=== PATIENT | male | born 1970 | race Two or more races ===

== ENCOUNTER 2023-01-04 11:16 | Inpatient (IN) | payer OTHER ==
[~2023-01-04] VITALS: Ht 170.2 cm; Wt 85.9 kg
[2023-01-04] MEDS ORDERED: ASPirin 325 MG TAB PO ONE (11:30)
[2023-01-04 11:44] LABS: Basophils # (auto) 0 10 ^3/uL (0-0.2); Basophils % (auto) 0.7 % (0.0-2.0); Eosinophils # (auto) 0.1 10 ^3/uL (0-0.8); Hematocrit 46.1 % (41.0-53.0); Hemoglobin 15.5 g/dL (13.5-17.5); Lymphocytes # (auto) 2.3 10 ^3/uL (0.4-5.4); Lymphocytes % (auto) 34.2 % (10.0-50.0); Mean Corpuscular Hemoglobin 28.7 pg (28.0-32.0); Mean Corpuscular Hgb Conc. 33.7 g/dL (32.0-36.0); Mean Corpuscular Volume 85.3 fL (80.0-100.0); Monocytes # (auto) 0.5 10 ^3/uL (0-1.3); Monocytes % (auto) 7.5 % (0.0-12.0); Neutrophils # (auto) 3.7 10 ^3/uL (1.6-8.6); Neutrophils % (auto) 56.6 % (37.0-80.0); Nucleated Red Blood Cells % 0.2 %; Red Blood Cells 5.41 10^6/uL (4.5-5.90); Red Cell Distribution Width 13.4 % (11.8-14.3); White Blood Cell 6.6 10^3/uL (4.4-10.8)
[2023-01-04 12:07] LABS: Albumin 4.1 g/dL (3.4-5.0); Calcium 8.5 mg/dL (8.5-10.1); Potassium 4.1 mmol/L (3.5-5.1)
[2023-01-04 12:10] LABS: Bilirubin, Total 0.8 mg/dL (0.2-1.0); Total Protein 7.8 g/dL (6.4-8.2)
[2023-01-04] MEDS: NITROGLYCERIN 0.4 MG SL TAB SL ONE ×2 (12:13→14:55)
[2023-01-04 12:47] LABS: BUN/Creatinine Ratio 17.7 (10.0-20.0)
[2023-01-04] MEDS ORDERED: DOCUSATE SOD 100 MG CAP PO PRN (17:30)
[2023-01-04] MEDS ORDERED: NITROGLYCERIN 0.4 MG SL TAB SL PRN (17:30)
[2023-01-04] MEDS ORDERED: ACETAMINOPHEN 325 MG TAB PO PRN (17:30)
[2023-01-04] MEDS ORDERED: MORPHINE SULFATE INJ 2 MG/ml SYRG IV PRN (17:30)
[2023-01-04] MEDS ORDERED: HYDROcodone-ACET 5/325MG TAB PO PRN (17:30)
[2023-01-04] MEDS ORDERED: FLUT1AER12 INH (17:31)
[2023-01-04] MEDS: [UNRECOGNIZED DRUG - OTHER] MT SCH (22:00)
[2023-01-04] MEDS: SODIUM CHLOR 0.9% PF (SALINE LOCK) 10ML VIAL/SYR IV SCH (22:00)
[2023-01-04] MEDS: FLUTICASONE SALMETEROL MT SCH (22:00)
[2023-01-05 06:25] LABS: Basophils # (auto) 0 10 ^3/uL (0-0.2); Basophils % (auto) 0.6 % (0.0-2.0); Eosinophils # (auto) 0.1 10 ^3/uL (0-0.8); Eosinophils % (auto) 1.7 % (0.0-7.0); Hematocrit 45.7 % (41.0-53.0); Hemoglobin 15.7 g/dL (13.5-17.5); Lymphocytes # (auto) 1.8 10 ^3/uL (0.4-5.4); Lymphocytes % (auto) 24.9 % (10.0-50.0); Mean Corpuscular Hemoglobin 29.2 pg (28.0-32.0); Mean Corpuscular Hgb Conc. 34.3 g/dL (32.0-36.0); Monocytes # (auto) 0.7 10 ^3/uL (0-1.3); Monocytes % (auto) 9.7 % (0.0-12.0); Neutrophils # (auto) 4.6 10 ^3/uL (1.6-8.6); Neutrophils % (auto) 63.1 % (37.0-80.0); Nucleated Red Blood Cells % 0.1 %; Red Blood Cells 5.38 10^6/uL (4.5-5.90); Red Cell Distribution Width 13.4 % (11.8-14.3); White Blood Cell 7.3 10^3/uL (4.4-10.8)
[2023-01-05] MEDS: SODIUM CHLOR 0.9% PF (SALINE LOCK) 10ML VIAL/SYR IV SCH ×2 (06:27→14:53)
[2023-01-05 06:36] LABS: Potassium 3.8 mmol/L (3.5-5.1)
[2023-01-05 06:44] LABS: Albumin 4.1 g/dL (3.4-5.0); Bilirubin, Total 0.9 mg/dL (0.2-1.0); Total Protein 8.1 g/dL (6.4-8.2)
[2023-01-05] MEDS ORDERED: AML5T PO (09:49)
[2023-01-05] MEDS ORDERED: BENA-36 PO (09:50)
[2023-01-05] MEDS ORDERED: ASPirin 81 mg TAB PO SCH (10:00)
[2023-01-05] MEDS ORDERED: IPRATROPIUM BROM 0.5 MG/2.5ML INH SOL NEB PRN (12:00)
[2023-01-05] MEDS ORDERED: ALBUTEROL SULF 2.5 MG/0.5ML(0.5%) NEB SOLN NEB PRN (12:00)
[2023-01-05] MEDS: [UNRECOGNIZED DRUG - OTHER] MT SCH (15:06)
[2023-01-05] MEDS: FLUTICASONE SALMETEROL MT SCH (15:06)
[2023-01-05 15:53] VITALS: BP 160/97
[2023-01-05 22:50] VITALS: BP 127/77
[2023-01-06] MEDS ORDERED: amLODIPine BESYLATE 5 MG TAB PO SCH (10:00)
[2023-01-06] MEDS ORDERED: BENAZEPRIL HCL 10 MG TAB PO SCH (10:00)
== END 2023-01-05 22:14 | disposition short-term general hospital (02) | DRG 305 ==
LOC: ER 11:16 → EDBD 11:16 → TELE 17:31
PROVIDERS: ADMIT Nurse Practitioner Family; ATTEND Internal Medicine
DX: I16.1 Hypertensive emergency (principal); L03.90 Cellulitis, unspecified; R07.89 Other chest pain; E78.5 Hyperlipidemia, unspecified; I10 Essential (primary) hypertension; I11.0 Hypertensive heart disease with heart failure; I50.9 Heart failure, unspecified; J45.909 Unspecified asthma, uncomplicated; Z82.49 Family history of ischemic heart disease and other diseases of the circulatory system
CPT/HCPCS: 36415; 71045; 80053; 83605; 83880; 84484; 85025; 93306; G0378